=== PATIENT | male | born 1970 | race Caucasian/White ===

== ENCOUNTER → 2022-01-22 | Outpatient (CLI) | payer BC | LOC: LAB 19:05 | DX: M96.1 Postlaminectomy syndrome, not elsewhere classified (principal) | CPT/HCPCS: 83036; 87081 ==

== ENCOUNTER → 2022-03-26 | Outpatient (CLI) | payer BC | LOC: LAB 18:30 | DX: R79.89 Other specified abnormal findings of blood chemistry (principal) | CPT/HCPCS: 80076 ==

== ENCOUNTER → 2022-04-23 | Outpatient (CLI) | payer BC | LOC: LAB 18:23 | DX: R79.89 Other specified abnormal findings of blood chemistry (principal); E66.9 Obesity, unspecified; Z12.5 Encounter for screening for malignant neoplasm of prostate | CPT/HCPCS: 80076; 82728; 83540; 83550; 84153; 84443 ==

== ENCOUNTER → 2022-05-07 | Outpatient (CLI) | payer BC | LOC: KOH-I 04-27 09:30 | DX: R79.89 Other specified abnormal findings of blood chemistry (principal); E66.9 Obesity, unspecified; K76.0 Fatty (change of) liver, not elsewhere classified | CPT/HCPCS: 76700 ==

== ENCOUNTER → 2022-06-04 | Outpatient (CLI) | payer BC ==
[2022-06-06 09:09] LABS: HBSAG SCREEN Negative (Negative); HCV AB <0.1 (0.0-0.9); HEP A AB, IGM Negative (Negative); HEP B CORE AB, IGM Negative (Negative)
== END ==
LOC: GENOP 18:36
PROVIDERS: Family Medicine
DX: R79.89 Other specified abnormal findings of blood chemistry (principal); K76.0 Fatty (change of) liver, not elsewhere classified; E66.9 Obesity, unspecified; E11.9 Type 2 diabetes mellitus without complications
CPT/HCPCS: 80074; 80076; 83036